=== PATIENT | male | born 1995 | race Hispanic/Latino ===

== ENCOUNTER 2020-03-16 17:31 | Emergency (ER) | payer MEDICAID, SELFPAY ==
--- NOTE | ~2020-03-16 | XR_ITS ---
EXAMINATION: XR chest 1V portable 03/16/2020 18:51 INDICATION: Shortness of breath, cough, fever and chills PROCEDURE: AP portable chest COMPARISON: 08/27/2014 FINDINGS: The lungs are clear. The cardiomediastinal silhouette is within normal limits. There are no pleural effusions. There is no pneumothorax suspected. IMPRESSION: 1: NO ACUTE CARDIOPULMONARY DISEASE. Reviewed, dictated and finalized at location A.
[2020-03-16 17:37] VITALS: BP 120/63; PULSE 69; RESP 18; TEMP 37.6; O2SAT 100
[2020-03-16 17:54] VITALS: RESP 18
[2020-03-16 18:02] VITALS: PULSE 74; RESP 18; TEMP 37.6
--- NOTE | 2020-03-16 18:17 | ED.GENADULT ---
HPI - General Adult General Chief complaint: Unspecified Stated complaint: I got all the symptoms of covid Time Seen by Provider: 03/16/20 18:17 Source: patient Mode of arrival: ambulatory Limitations: no limitations History of Present Illness HPI narrative: Patient is a 24 year old male who present c/o generalized body aches, fever, cough, generalized weakness and sob x 3-4 days. He denies nausea, vomiting or diarrhea. He reports taking Tylenol for body aches and fever. Denies other complaints. MD complaint: fever, cough, sob, body aches and weakness Related Data Home Medications Medication Instructions Recorded Confirmed No Home Medications 03/16/20 03/16/20 Allergies Allergy/AdvReac Type Severity Reaction Status Date / Time No Known Allergies Allergy Verified 03/16/20 17:40 Review of Systems Review of Systems: Narrative: CONSTITUTIONAL: Reports fever, chills, or sweats. EYES: Denies visual changes, redness, or discharge. ENT: Denies rhinorrhea, congestion, sore throat, or otalgia. CARDIOVASCULAR: Denies chest pain, palpitations, or edema. RESPIRATORY: Reports cough or dyspnea. GASTROINTESTINAL: Denies abdominal pain, nausea, vomiting, or diarrhea. GENITOURINARY: Denies dysuria or hematuria. SKIN: Denies rash or itching. MUSCULOSKELETAL: Denies back pain, joint pain, or myalgia. NEUROLOGIC: Denies headache, numbness, dizziness, or weakness. PSYCHIATRIC: Denies anxiety or depression. [facility] Social History Social History (Updated 03/16/20 @ 18:40 by TOMMY Gonzalez) Smoking status: Never smoker Alcohol intake: current Alcohol use details: socially Substance use: never Gender identity (if verbalized by the patient): Male Exam Narrative: Exam Narrative: GENERAL: Well-appearing, well-nourished, and in no acute distress. HEAD: Normocephalic, atraumatic. EYES: EOMI. No redness or drainage. Conjunctiva are normal. ENT: Mucous membranes pink and moist. Nares clear. No rhinorrhea. Throat normal. Uvula midline. NECK: AROM. Supple. No lymphadenopathy. CHEST: No respiratory distress. Clear to auscultation. HEART: Regular rate and rhythm. No murmur appreciated. Normal peripheral pulses. EXTREMITIES: Normal range of motion. No edema. SKIN: Warm, dry, no rash. NEURO: No focal deficits. Alert and oriented x3. Gait steady. PSYCH: Normal affect. No signs of depression or anxiety. Course Vital Signs Vital signs: Vital Signs Temperature 37.6 C 03/16/20 17:37 Pulse Rate 69 03/16/20 17:37 Respiratory Rate 18 03/16/20 17:37 Blood Pressure 120/63 03/16/20 17:37 Pulse Oximetry 100 03/16/20 17:37 Temperature 37.6 C H 03/16/20 18:02 Pulse Rate 74 03/16/20 18:02 Respiratory Rate 18 03/16/20 18:02 Blood Pressure 120/63 03/16/20 17:37 Pulse Oximetry 100 03/16/20 17:37 Medical Decision Making MDM Narrative Medical decision making narrative: Patients has many symptoms of Covid. Chest xray has no abnormalities. Discussed testing and when results will be available. Discussed quarantine with patient. Patient verbalizes understanding. Differential Diagnosis Differential Diagnosis: Covid, URI, allergies Vital Signs Vital Signs: Vital Signs Temperature 37.6 C 03/16/20 17:37 Pulse Rate 69 03/16/20 17:37 Respiratory Rate 18 03/16/20 17:37 Blood Pressure 120/63 03/16/20 17:37 Pulse Oximetry 100 03/16/20 17:37 Temperature 37.6 C H 03/16/20 18:02 Pulse Rate 74 03/16/20 18:02 Respiratory Rate 18 03/16/20 18:02 Blood Pressure 120/63 03/16/20 17:37 Pulse Oximetry 100 03/16/20 17:37 Critical Care Time Critical Care Time Critical Care Time: No Discharge Plan Discharge Clinical Impression: COVID-19 determined by clinical diagnostic criteria Condition: Stable Instructions: How To Wash Your Hands (ED), COVID-19 (Coronavirus Disease 2019) (ED) Additional Instructions: You may take Tylenol or ibuprofen for fever and b
[2020-03-16 19:44] VITALS: BP 129/71; PULSE 78; RESP 18; TEMP 37.7; O2SAT 99
[2020-03-18 12:00] LABS: SARS-CoV-2 RNA PCR Negative
== END 2020-03-16 19:47 | disposition home or self-care (01) ==
PROVIDERS: Emergency Provider Nurse Practitioner
DX: R50.9 Fever, unspecified (principal); R05 Cough; Z20.828 Contact with and (suspected) exposure to other viral communicable diseases
CPT/HCPCS: 71045; 87635; 99283; C9803; U0003

== ENCOUNTER 2021-02-21 06:57 | Outpatient (CLI) | payer OTHER, SELFPAY ==
--- NOTE | ~2021-02-21 | MR_ITS ---
EXAMINATION: MR lumbar spine wo con DATE: 02/21/2021 08:03 INDICATION: Lumbar spinal stenosis. Low back pain. Left leg pain. TECHNIQUE: Magnetic resonance imaging (MRI) of the lumbar spine was performed without intravenous con trast. Sequences included sagittal T2-weighted FSE, sagittal T2-weighted FS FSE, sagittal T1-weighted FSE, and axial T2-weighted FSE. COMPARISON: None FINDINGS: There is 6 degrees levocurvature of thoracolumbar spine. There is mild chronic anterior wed ging of T12 and L1 vertebral bodies, likely physiologic. There is 3 mm retrolisthesis of L1 on L2. Th ere is mildly decreased disc height at L5-S1. The distal spinal cord signal intensity is normal. The conus medullaris is at L1. The following disc levels are specifically discussed: L1-L2: The disc does not extend beyond the endplate margin. There is no facet joint osteoarthritis. T here is no neural foraminal stenosis. There is no central canal stenosis. L2-L3: The disc is mildly bulging. There is mild bilateral facet joint osteoarthritis. There is mild lateral neural foraminal stenosis. There is mild central canal stenosis. L3-L4: The disc is bulging. There is no facet joint osteoarthritis. There is mild bilateral neural fo raminal stenosis. There is mild central canal stenosis. L4-L5: The disc is bulging. There is mild left facet joint osteoarthritis. There is mild bilateral ne ural foraminal stenosis. There is mild central canal stenosis. L5-S1: There is a left central extrusion that abuts the left S1 nerve root in left lateral recess. Th ere is mild left facet joint osteoarthritis. There is mild right and moderate left neural foraminal s tenosis. There is mild central canal stenosis. There is moderate stenosis of left lateral recess. IMPRESSION: 1. Moderate spondylosis at L5-S1. Reviewed, dictated and finalized at location A.
== END 2021-02-21 06:58 | disposition home or self-care (01) ==
LOC: ANHIMG 07:05
PROVIDERS: PCP Physician Assistant; Visit Provider Physician Assistant
DX: M48.062 Spinal stenosis, lumbar region with neurogenic claudication (principal); M48.04 Spinal stenosis, thoracic region; M47.816 Spondylosis without myelopathy or radiculopathy, lumbar region
CPT/HCPCS: 72148

== ENCOUNTER 2021-03-27 12:30 | Outpatient (RCR) | payer OTHER, SELFPAY ==
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
--- NOTE | 2021-04-01 14:10 | PCPTNOTE ---
Patient called & cancelled scheduled appointment this date due to not feeling well.
--- NOTE | 2021-04-15 12:47 | PCPTNOTE ---
Patient did not show up for scheduled appointment this date. Called and spoke with who states the whole family has COVID. Instructed them to call once cleared of COVID symptoms to schedule a f/u visit. Removed remaining visits.
--- NOTE | 2021-05-06 08:40 | PCPTNOTE ---
Admitting Provider: Attending Provider: Tiny Haro, YA Patient:Cleveland Anderson Date of :1995 Physical Therapy Discharge Note Patient has not returned for any further treatments since 03/27/2021, therefore he will be discharged at this time. Patient?s initial visit was on 03/13/2021 12:00 and he had a total of 2 visits. The goals have been not met due to limited therapy visits attended. Thank you for referring this patient to [facility]. Please review, sign, date and return this discharge summary ROMULO. I have been updated about the patient's current status and I agree with discharge from the above service at this time. Referring Physician Date
== END 2021-05-06 16:17 | disposition home or self-care (01) ==
LOC: ANHPT 12:30
PROVIDERS: PCP Physician Assistant; Visit Provider Physician Assistant
DX: M48.062 Spinal stenosis, lumbar region with neurogenic claudication (principal)
CPT/HCPCS: 97110; 97162

== ENCOUNTER 2021-08-06 10:31 | Emergency (ER) | payer SELFPAY ==
[2021-08-06 10:33] VITALS: BP 153/91; PULSE 106; RESP 18; TEMP 36.4; O2SAT 100
--- NOTE | 2021-08-06 10:48 | ED.GENADULT ---
HPI - General Adult General Chief complaint: Psychiatric Symptoms <Rula Barton PA-C - Last Filed: 08/06/21 16:57> Stated complaint: si <Rula Barton PA-C - Last Filed: 08/06/21 16:57> Time Seen by Provider: 08/06/21 10:48 <Rula Barton PA-C - Last Filed: 08/06/21 16:57> Source: patient <BETH Cheema Last Filed: 08/06/21 16:57> Mode of arrival: ambulatory <Rula Barton PA-C - Last Filed: 08/06/21 16:57> Limitations: no limitations <BETH Cheema Last Filed: 08/06/21 16:57> History of Present Illness HPI narrative: 25-year-old male here for evaluation of suicidal ideation. Patient tells me that for the last 2 weeks he has had thoughts of harming himself and is done so by cutting on his forearms and upper arms. In the last couple days he has had thoughts of wandering into the [place] and disappearing , or driving his car perfecto. He states what stops him is the thought of his family missing him. He feels this episode was brought on by his impending divorce, but he was brought here today by his because she was worried about him. He tells me that he has had a history of depression since childhood, he is never seen a therapist or psychiatrist. He is always calmed himself by drawing but that has not been helping him recently. He smokes marijuana twice a day to help with his anxiety. Otherwise he does not drink, he has not used any medications not prescribed for him. No medical history. He is very cooperative and pleasant, somewhat tearful when he speaks about his family. <Rula Barton PA-C - Last Filed: 08/06/21 16:57> Onset (ago): day(s) <Rula Barton PA-C - Last Filed: 08/06/21 16:57> Related Data Home medications: Home Medications Medication Instructions Recorded Confirmed No Home Medications 03/16/20 08/06/21 <Rula Barton PA-C - Last Filed: 08/06/21 16:57> Allergies/adverse reactions: Allergies Allergy/AdvReac Type Severity Reaction Status Date / Time No Known Allergies Allergy Verified 08/06/21 10:41 <Rula Barton PA-C - Last Filed: 08/06/21 16:57> Review of Systems Review of Systems: All systems reviewed & are unremarkable except as noted in HPI and below <Rula Barton PA-C - Last Filed: 08/06/21 16:57> [facility] Past Medical History Medical History: Medical History Chronic back pain <Rula Barton PA-C - Last Filed: 08/06/21 16:57> Social History Social History: Social History Smoking status: Never smoker Alcohol intake: current Alcohol use details: socially Substance use: never Substance use type: marijuana Gender identity (if verbalized by the patient): Male <Rula Barton PA-C - Last Filed: 08/06/21 16:57> Exam Const: General: healthy appearing, no acute distress and alert <Rula Barton PA-C - Last Filed: 08/06/21 16:57> Orientation/consciousness: patient oriented x3 <Rula Barton PA-C - Last Filed: 08/06/21 16:57> HENMT: Head: normal to inspection <Rula Barton PA-C - Last Filed: 08/06/21 16:57> Eyes: Conjunctivae: conjunctivae normal <Rula Barton PA-C - Last Filed: 08/06/21 16:57> Pupils: Equal, round and reactive pupils present <Rula Barton PA-C - Last Filed: 08/06/21 16:57> Resp: Effort & Inspection: normal respiratory effort <Rula Barton PA-C - Last Filed: 08/06/21 16:57> Auscultation: clear to auscultation bilaterally <Rula Barton PA-C - Last Filed: 08/06/21 16:57> Cardio: Rate: regular rate <Rula Barton PA-C - Last Filed: 08/06/21 16:57> Rhythm: regular rhythm <Rula Barton PA-C - Last Filed: 08/06/21 16:57> GI: GI Palp: Yes Soft to palpation <Rula Barton PA-C - Last Filed: 08/06/21 16:57> Skin: General skin exam: normal color and other (psoriasis right LE) <S
[2021-08-06 11:11] LABS: Basophils Percent Auto 0.3 % (0.2-1.2); Eosinophils Absolute Auto 0.2 K/mm3 (0-0.3); Eosinophils Percent Auto 1.5 % (0-4.4); Hemoglobin 15.6 g/dL (14.0-18.0); Immature Granulocyte Absolute 0.04 K/mm3 (0.00-0.031); Immature Granulocyte Percent A 0.4 % (0-0.5); Lymphocytes Absolute Auto 2.26 K/mm3 (0.9-3.2); Lymphocytes Percent Auto 23.3 % (18.3-44.2); Mean Corpuscular HGB Conc 33.2 g/dl (32-36); Mean Corpuscular Hemoglobin 30.4 pg (26-34); Mean Corpuscular Volume 91.4 fl (80-100); Mean Platelet Volume 8.8 fl (7.4-10.4); Monocytes Absolute Auto 0.9 K/mm3 (0.1-0.6); Monocytes Percent Auto 9.2 % (2.6-8.5); Neutrophils Absolute Auto 6.3 K/mm3 (1.3-6.7); Neutrophils Percent Auto 65.3 % (45.5-73.1); Platelet Count Result 270 k/mm3 (150-375); Red Blood Count 5.14 M/mm3 (4.6-6.20); Red Cell Distribution Width 13.5 % (11.5-14.5); White Blood Count 9.7 K/mm3 (4.5-10.0)
[2021-08-06 11:21] LABS: Alanine Aminotransferase 12 U/L (4-50); Albumin Level 4.8 g/dL (3.5-5.1); Alkaline Phosphatase 97 U/L (38-126); Anion Gap 8 mmol/L (8-16); Aspartate Amino Transferase 21 U/L (17-59); Bilirubin,Total 0.6 mg/dL (0.2-1.3); Blood Urea Nitrogen 14 mg/dL (9-20); Calcium 9.4 mg/dL (8.4-10.2); Carbon Dioxide 26 mmol/L (22-30); Chloride 105 mmol/L (98-107); Estimated CRCL calculation 119 ml/min; Estimated Glomerular Filt Rate > 60; Glucose 105 mg/dL (65-110); Potassium 4.3 mmol/L (3.4-5.0); Sodium 139 mmol/L (137-145)
[2021-08-06 11:26] LABS: Ethanol < 10 mg/dL (<10)
[2021-08-06 11:51] LABS: Thyroid Stimulating Hormone 0.889 uIU/mL (0.465-4.680)
[2021-08-06 12:34] LABS: Add Urine Microscopic? YES; Appearance Urine Clear (Clear); Bacteria Urine Trace /hpf; Bilirubin Urine Negative (Negative); Blood Urine Negative (Negative); Color Urine Yellow (Yellow); Glucose Urine UA Negative (Negative); Ketones Urine Trace mg/dL (Negative); Leukocyte Esterase Ur Trace LEU/UL (Negative); Mucus Urine Heavy /lpf; Nitrate Urine Negative (Negative); Protein Urine Negative (Negative); RBC Urine 0-2 /hpf (0-2); Specific Grav Ur 1.023 (1.001-1.035); Squamous Epithelial Cell Urine Rare /hpf (Few); Urobilinogen Urine Negative mg/dL (<2.0); WBC Urine 0-3 /hpf
[2021-08-06 12:41] LABS: Barbiturate Screen Urine Positive (Negative); Benzodiazepines Screen Urine Negative (Negative)
[2021-08-06 12:43] LABS: Amphetamine Screen Urine Negative (Negative); Cannabinoid Screen Urine Positive (Negative); Cocaine Screen Urine Negative (Negative); Methadone Screen Urine Negative (Negative); Opiate Screen Urine Negative (Negative); Phencyclidine Screen Urine Negative (Negative)
--- NOTE | 2021-08-06 15:03 | PC.NURSE ---
Crisis here to evaluate pt.
== END 2021-08-06 17:04 | disposition home or self-care (01) ==
PROVIDERS: Emergency Provider General Practice; PCP Physician Assistant
DX: R45.851 Suicidal ideations (principal); F32.A Depression, unspecified
CPT/HCPCS: 36415; 80053; 80307; 81001; 84443; 85025; 99284

== ENCOUNTER 2021-10-02 10:16 | Emergency (ER) | payer SELFPAY ==
--- NOTE | 2021-10-02 10:27 | ED.NAVMDI ---
HPI - Nausea/Vomiting/Diarrhea General Chief complaint: Nausea/Vomiting/Diarrhea Stated complaint: fever/vomiting Time Seen by Provider: 10/02/21 10:28 Source: patient Mode of arrival: ambulatory Limitations: no limitations History of Present Illness HPI Narrative: 25 yo M states 3 days ago he has N/V/D that has resolved. Today his son's mother has similar symptoms. the mother also had similar symptoms and has UTI. was told UTI caused by e-coli and the doctor told family they can get e.coli from the mother. the pt is now worried that he has e.coli although he is symptom free. he also needs a covid test for work. Related Data Home Medications Medication Instructions Recorded Confirmed No Home Medications 03/16/20 08/06/21 Allergies Allergy/AdvReac Type Severity Reaction Status Date / Time No Known Allergies Allergy Verified 08/06/21 10:41 Review of Systems Review of Systems: CONSTITUTIONAL: Denies fever, chills, or sweats. EYES: Denies visual changes, redness, or discharge. ENT: Denies rhinorrhea, congestion, sore throat, or otalgia. CARDIOVASCULAR: Denies chest pain, palpitations, or edema. RESPIRATORY: Denies cough or dyspnea. GASTROINTESTINAL: Denies abdominal pain, nausea, vomiting, or diarrhea. GENITOURINARY: Denies dysuria or hematuria. SKIN: Denies rash or itching. MUSCULOSKELETAL: Denies back pain, joint pain, or myalgia. NEUROLOGIC: Denies headache, numbness, or weakness. PSYCHIATRIC: Denies anxiety or depression. All other systems reviewed are negative, except as documented in HPI. [facility] Past Medical History Medical History Chronic back pain Social History Social History Smoking status: Never smoker Alcohol intake: current Alcohol use details: socially Substance use: never Substance use type: marijuana Gender identity (if verbalized by the patient): Male Comments At time of signature, agree with nursing past medical, surgical, social and family history. There is no relevant family history pertinent to the presenting complaint. Exam Narrative: GENERAL: This is a well-nourished, well-developed patient, in no apparent distress. HEAD: normocephalic, atraumatic. EYES: PERRL. Sclera clear/white. Vision is grossly intact. EARS: External ears normal, auditory canals clear and without drainage, TMs normal without perforation. Hearing grossly intact. NOSE: External nose normal with no obvious nasal discharge, nares without redness, no rhinorrhea. THROAT: Mucous membranes moist, posterior pharynx clear. NECK: Neck supple, non-tender without lymphadenopathy, masses or thyromegaly. CARDIOVASCULAR: Regular rate and rhythm without murmurs, gallops, or rubs. RESPIRATORY: Clear to auscultation. Breath sounds equal bilaterally. No wheezes, rales, or rhonchi. GASTROINTESTINAL: Abdomen soft, non-tender, nondistended. Bowel sounds are active. No hepato-splenomegaly, or palpable masses. No guarding. SKIN: warm, Dry, intact with no suspicious lesions or rash, good texture and turgor. NEURO: awake, alert, and oriented to person, place and time. There were no obvious focal neurologic abnormalities. EXTREMITIES: No joint tenderness, effusion, or edema noted. No calf tenderness. Negative Homans sign bilaterally. BACK: Nontender without deformity. No CVA tenderness. Course Course Level of Care: Express Care Visit Vital Signs Vital signs: Vital Signs Temperature 37.2 C 10/02/21 10:30 Pulse Rate 99 10/02/21 10:30 Respiratory Rate 16 10/02/21 10:30 Blood Pressure 117/79 10/02/21 10:30 Pulse Oximetry 99 10/02/21 10:30 Temperature 37.2 C 10/02/21 10:30 Pulse Rate 99 10/02/21 10:30 Respiratory Rate 16 10/02/21 10:30 Blood Pressure 117/79 10/02/21 10:30 Pulse Oximetry 99 10/02/21 10:30 Reviewed MDM - Nausea/Vomiting/Diarrhea MDM Narrative Medical decision making
[2021-10-02 10:30] VITALS: BP 117/79; PULSE 99; RESP 16; TEMP 37.2; O2SAT 99
== END 2021-10-02 11:00 | disposition home or self-care (01) ==
PROVIDERS: Emergency Provider Nurse Practitioner Family
DX: Z71.1 Person with feared health complaint in whom no diagnosis is made (principal); Z20.822 Contact with and (suspected) exposure to COVID-19
CPT/HCPCS: 87426; 99213; C9803; G0463